=== PATIENT | male | born 1995 | race Caucasian/White ===

== ENCOUNTER 2019-08-09 16:34 | Emergency (ER) | payer MEDICAID ==
[~2019-08-09] VITALS: Ht 175.3 cm; Wt 75.3 kg
[2019-08-09 16:38] VITALS: Ht 175.3 cm; Wt 75.3 kg
[2019-08-09 19:37] VITALS: BP 125/75
== END 2019-08-09 19:37 | disposition home or self-care (01) ==
LOC: ED 16:34
DX: S81.012A Laceration without foreign body, left knee, initial encounter (principal); V19.88XA Pedal cyclist (driver) (passenger) injured in other specified transport accidents, initial encounter; Y93.89 Activity, other specified; Y92.89 Other specified places as the place of occurrence of the external cause; Y99.8 Other external cause status
CPT/HCPCS: 90715; J2001